=== PATIENT | female | born 1960 | race Caucasian/White ===

== ENCOUNTER → 2018-10-09 13:47 | Outpatient (CLI) | payer OTHER, SELFPAY ==
[2018-09-18 15:31] VITALS: BMI 38.0
== END ==
PROVIDERS: Family Provider Family Medicine; PCP Family Medicine; Visit Provider Family Medicine
DX: R35.0 Frequency of micturition (principal); R82.90 Unspecified abnormal findings in urine
CPT/HCPCS: 87077; 87086; 87088; 87186

== ENCOUNTER → 2019-05-29 16:19 | Outpatient (CLI) | payer OTHER, SELFPAY ==
[2018-09-18 15:31] VITALS: BMI 38.0
[2019-05-29 17:41] LABS: ALB/GLOB Ratio 0.9 RATIO (0.9-2.4); AST(SGOT) 37 U/L (15-37); Alanine Aminotransfer ALT/SGPT 61 U/L (13-56); Albumin, Serum 3.7 g/dL (3.2-5.0); Alkaline Phosphatase 64 U/L (45-117); Anion Gap 10 (5-15); BUN 15 mg/dL (7-18); BUN/Creat Ratio 20.8 RATIO (10-20); Calcium,Total 9.5 mg/dL (8.5-10.1); Chloride 102 mmol/L (98-107); Creatinine, Serum 0.72 mg/dL (0.55-1.02); EST Glomerular Filtration Rate 89 mL/min (>60); Est Glom Filt Rate - Afr Amer 107 mL/min (>60); Globulin 4.3 g/dL (2.2-4.2); Glucose 80 mg/dL (74-106); Potassium 3.2 mmol/L (3.5-5.1); Sodium Level 144 mmol/L (136-145)
== END ==
PROVIDERS: Family Provider Family Medicine; PCP Family Medicine; Visit Provider Family Medicine
DX: Z51.81 Encounter for therapeutic drug level monitoring (principal)
CPT/HCPCS: 36415; 80053

== ENCOUNTER → 2020-06-09 15:20 | Outpatient (CLI) | payer OTHER, SELFPAY ==
[2019-10-06 15:43] VITALS: BMI 38.7
--- NOTE | 2020-06-09 15:23 | BI_ITS ---
MAMMOGRAPHY - BILATERAL SCREENING REASON FOR EXAM: Female, 60 years old. Routine annual screening examination. PERTINENT HISTORY: Aunt with breast cancer. TECHNIQUE: Digital bilateral breast luke (3D mammographic acquisition) in the CC and MLO projections. 2-D mediolateral oblique (MLO) and craniocaudad (CC) views of both breasts were obtained. CAD: Full Field Digital Mammography with Computer Added Detection was performed. COMPARISON: Comparison is made with prior abdomen examination dated 10/23/2016. FINDINGS: Breast Composition: There are scattered areas of fibroglandular density. There are no dominant masses or suspicious calcifications. Stable benign appearing small axillary lymph nodes. No other significant abnormalities are identified. There has been no significant change since the prior study. BI/SCREEN MAMM (CAD) W/LUKE BILAT IMPRESSION: Stable bilateral screening mammogram. Yearly follow-up mammogram recommended. (A) ASSESSMENT CATEGORY: BIRADS Category 2: Benign. A letter regarding these results will be sent to the patient by the facility within 30 days. Approximately 10% of breast cancers are not detected by mammography. A normal mammogram should not delay biopsy of a clinically suspicious abnormality. [id number] Electronically Signed: Lb Castellanos, at 9:09 EDT , Service support ,
== END ==
PROVIDERS: PCP Family Medicine; Referring Provider Family Medicine; Visit Provider Family Medicine
DX: Z12.31 Encounter for screening mammogram for malignant neoplasm of breast (principal); Z80.3 Family history of malignant neoplasm of breast
CPT/HCPCS: 77063; 77067

== ENCOUNTER → 2020-07-15 15:18 | Outpatient (CLI) | payer OTHER, SELFPAY ==
[2019-10-06 15:43] VITALS: BMI 38.7
[2020-07-15 18:52] LABS: AST(SGOT) 79 U/L (15-37); Alanine Aminotransfer ALT/SGPT 127 U/L (13-56); Albumin, Serum 3.8 g/dL (3.2-5.0); Alkaline Phosphatase 64 U/L (45-117); Anion Gap 7 (5-15); BUN 13 mg/dL (7-18); BUN/Creat Ratio 16.1 RATIO (10-20); Calcium,Total 9.1 mg/dL (8.5-10.1); Chloride 101 mmol/L (98-107); Creatinine, Serum 0.81 mg/dL (0.55-1.02); EST Glomerular Filtration Rate 78 mL/min (>60); Est Glom Filt Rate - Afr Amer 94 mL/min (>60); Glucose 79 mg/dL (74-106); Potassium 2.9 mmol/L (3.5-5.1); Protein, Total 7.8 g/dL (6.4-8.2); Sodium Level 140 mmol/L (136-145)
[2020-07-17 05:07] LABS: HEPATITIS B SURFACE AG Negative (Negative); Hepatitis A IgM Antibody Negative (Negative); Hepatitis B Core AB IgM Negative (Negative)
[2020-07-17 08:41] LABS: Hep C Antibodies <0.1 s/co ratio (0.0-0.9)
== END ==
PROVIDERS: PCP Family Medicine; Referring Provider Family Medicine; Visit Provider Family Medicine
DX: R74.8 Abnormal levels of other serum enzymes (principal); R94.5 Abnormal results of liver function studies
CPT/HCPCS: 36415; 80053; 80074

== ENCOUNTER → 2020-07-31 10:26 | Outpatient (CLI) | payer OTHER, SELFPAY ==
[2019-10-06 15:43] VITALS: BMI 38.7
--- NOTE | 2020-07-31 10:35 | US_ITS ---
STUDY: ABDOMINAL ULTRASOUND - RIGHT UPPER QUADRANT REASON FOR VISIT: Female, 60 years old ELEVATED LFTS TECHNIQUE: Ultrasound evaluation of the right upper quadrant was performed with real-time and static feliz-scale imaging. TECHNICAL QUALITY: Limited. Examination limited due to a combination of factors including obesity and bowel gas. COMPARISON: None. FINDINGS: Liver: The liver measures 17 cm. There is increased echogenicity of the liver. The bile ducts are within normal limits. There is hepatic color flow. The direction of portal flow is hepatopetal. There is no demonstrated mass lesion. Gallbladder: The patient is status post cholecystectomy. Common Bile Duct (C.B.D.): The common bile duct measures 6 mm. Pancreas: There is no demonstrated pancreatic mass or cyst. Right Kidney: Normal size of the right kidney. The right kidney measures 12.0 x 5.1 x 3.9 cm. Normal renal cortex. The right cortex measures 1.3 cm. There is no demonstrated renal mass or cyst. There is no right hydronephrosis. US/Abdomen Limited IMPRESSION: Increased echogenicity of the liver is nonspecific but most commonly associated with hepatic steatosis. Cholecystectomy. Electronically Signed: Richy Ayala MD ([facility]) at 15:27 EDT , Service support ,
== END ==
PROVIDERS: PCP Family Medicine; Referring Provider Family Medicine; Visit Provider Family Medicine
DX: R74.8 Abnormal levels of other serum enzymes (principal)
CPT/HCPCS: 76705

== ENCOUNTER → 2020-08-13 09:06 | Outpatient (CLI) | payer OTHER, SELFPAY ==
[2019-10-06 15:43] VITALS: BMI 38.7
[2020-08-13 10:08] LABS: ALB/GLOB Ratio 0.8 RATIO (0.9-2.4); AST(SGOT) 62 U/L (15-37); Alanine Aminotransfer ALT/SGPT 98 U/L (13-56); Albumin, Serum 3.4 g/dL (3.2-5.0); Alkaline Phosphatase 59 U/L (45-117); Anion Gap 3 (5-15); BUN 11 mg/dL (7-18); BUN/Creat Ratio 13.1 RATIO (10-20); Chloride 108 mmol/L (98-107); Creatinine, Serum 0.84 mg/dL (0.55-1.02); EST Glomerular Filtration Rate 74 mL/min (>60); Est Glom Filt Rate - Afr Amer 90 mL/min (>60); Globulin 4.2 g/dL (2.2-4.2); Glucose 87 mg/dL (74-106); Potassium 3.7 mmol/L (3.5-5.1); Protein, Total 7.6 g/dL (6.4-8.2); Sodium Level 142 mmol/L (136-145)
== END ==
PROVIDERS: PCP Family Medicine; Referring Provider Family Medicine; Visit Provider Family Medicine
DX: R74.8 Abnormal levels of other serum enzymes (principal)
CPT/HCPCS: 36415; 80053

== ENCOUNTER → 2020-09-15 15:18 | Outpatient (CLI) | payer OTHER, SELFPAY ==
[2019-10-06 15:43] VITALS: BMI 38.7
[2020-09-15 18:22] LABS: ALB/GLOB Ratio 0.8 RATIO (0.9-2.4); AST(SGOT) 46 U/L (15-37); Alanine Aminotransfer ALT/SGPT 73 U/L (13-56); Albumin, Serum 3.7 g/dL (3.2-5.0); Alkaline Phosphatase 66 U/L (45-117); Anion Gap 8 (5-15); BUN 12 mg/dL (7-18); BUN/Creat Ratio 14.2 RATIO (10-20); Calcium,Total 9.2 mg/dL (8.5-10.1); Chloride 102 mmol/L (98-107); Creatinine, Serum 0.85 mg/dL (0.55-1.02); EST Glomerular Filtration Rate 73 mL/min (>60); Est Glom Filt Rate - Afr Amer 89 mL/min (>60); Globulin 4.4 g/dL (2.2-4.2); Glucose 57 mg/dL (74-106); Potassium 2.8 mmol/L (3.5-5.1); Protein, Total 8.1 g/dL (6.4-8.2); Sodium Level 143 mmol/L (136-145)
[2020-09-16 14:17] LABS: Magnesium 2.3 mg/dL (1.6-2.6)
== END ==
PROVIDERS: PCP Family Medicine; Visit Provider Family Medicine
DX: R74.8 Abnormal levels of other serum enzymes (principal); E87.6 Hypokalemia
CPT/HCPCS: 36415; 80053; 83735

== ENCOUNTER → 2020-10-11 16:29 | Outpatient (CLI) | payer OTHER, SELFPAY ==
[2020-10-11 15:38] VITALS: BMI 39.3
[2020-10-11 17:32] LABS: ALB/GLOB Ratio 0.9 RATIO (0.9-2.4); AST(SGOT) 39 U/L (15-37); Alanine Aminotransfer ALT/SGPT 72 U/L (13-56); Albumin, Serum 3.9 g/dL (3.2-5.0); Alkaline Phosphatase 61 U/L (45-117); Anion Gap 5 (5-15); BUN 16 mg/dL (7-18); BUN/Creat Ratio 18.5 RATIO (10-20); Calcium,Total 9.5 mg/dL (8.5-10.1); Chloride 103 mmol/L (98-107); Creatinine, Serum 0.87 mg/dL (0.55-1.02); EST Glomerular Filtration Rate 71 mL/min (>60); Est Glom Filt Rate - Afr Amer 86 mL/min (>60); Globulin 4.2 g/dL (2.2-4.2); Glucose 74 mg/dL (74-106); Potassium 3.5 mmol/L (3.5-5.1); Protein, Total 8.1 g/dL (6.4-8.2); Sodium Level 141 mmol/L (136-145)
== END ==
LOC: LABSPEC 16:32 → LAB 10-13 06:36
PROVIDERS: PCP Family Medicine; Referring Provider Family Medicine; Visit Provider Family Medicine
DX: E87.6 Hypokalemia (principal); R74.8 Abnormal levels of other serum enzymes
CPT/HCPCS: 36415; 80053

== ENCOUNTER → 2020-10-15 13:36 | Outpatient (CLI) | payer OTHER, SELFPAY ==
[2019-10-06 15:43] VITALS: BMI 38.7
[2020-10-11 15:38] VITALS: BMI 39.3
--- NOTE | 2020-10-15 13:41 | ECHOCS_ITS ---
Reason For Study: MURMUR Procedure This was a 2D Doppler, Color Flow transthoracic echocardiogram. The study was technically difficult. Contrast injection was performed. Exam performed in department. Left Ventricle Normal LV size. Left ventricular systolic function is normal. The estimated ejection fraction is 65 %. No evidence for diastolic dysfunction. No regional wall motion abnormalities noted. Right Ventricle Normal RV size. Normal systolic function. Atria Normal left atrium. Normal right atrium. No doppler evidence for ASD. Mitral Valve There is no mitral annular calcification. Normal mitral valve. Trivial mitral valve insufficiency. Tricuspid Valve Normal tricuspid valve. Mild eccentric tricuspid valve insufficiency. Right ventricular systolic pressure estimated to be 32 mmHg. Aortic Valve Bicuspid aortic valve. Mild diffuse aortic valve thickening. Mild focal aortic valve calcification. Mild aortic stenosis. Trivial aortic valve insufficiency. Pulmonic Valve The pulmonic valve is not well visualized. Great Vessels Mildly dilated aortic root. Pericardium/Pleural No pericardial effusion. Medication 22 gauge I.V. with prn adaptor inserted into right arm. Diluted definity 6ml given slow IV push to enhance endocardial definition. MMode/2D Measurements & Calculations LVIDd: 4.9 cm IVSd: 0.84 cm LVOT diam: 2.0 cm LVIDs: 3.4 cm LVPWd: 0.89 cm RVDd: 3.0 cm FS: 31.2 % LVOT area: 3.1 cm2 Ao root diam: 4.0 cm LAV(MOD-bp): 64.2 ml LVAd ap4: 36.6 cm2 LAV(MOD-bp) Indexed: 31.9 ml/m2 EDV(MOD-sp4): 127.2 ml LAV(MOD-sp2): 61.0 ml EDV(sp4-el): 135.2 ml LAV(MOD-sp4): 60.6 ml LVAs ap4: 20.6 cm2 ESV(MOD-sp4): 51.2 ml ESV(sp4-el): 51.1 ml EF(MOD-sp4): 59.7 % EF(sp4-el): 62.2 % SV(MOD-sp4): 75.9 ml SV(sp4-el): 84.2 ml LA A4 area: 21.0 cm2 LA dimension(2D): 3.8 cm RA A4 area: 14.0 cm2 Time Measurements MV dec time: 0.27 sec Doppler Measurements & Calculations MV E max akhil: 81.6 cm/sec Lat Peak E' Akhil: 10.6 cm/sec Med Peak E' Akhil: 7.6 cm/sec MV A max akhil: 65.4 cm/sec E/E' lat: 7.7 E/E' med: 10.7 MV E/A: 1.2 Ao V2 max: 182.5 cm/sec LV V1 max: 105.0 cm/sec PA V2 max: 85.5 cm/sec Ao max P.3 mmHg LV V1 max P.4 mmHg JOSEPH(V,D): 1.8 cm2 TR max akhil: 269.1 cm/sec TR max P.0 mmHg Interpretation Summary The study was technically difficult. Contrast injection was performed. Left ventricular systolic function is normal. The estimated ejection fraction is 65 %. Trivial mitral valve insufficiency. Mild eccentric tricuspid valve insufficiency. Bicuspid aortic valve. Mild aortic stenosis. Trivial aortic valve insufficiency. Mildly dilated aortic root. Right ventricular systolic pressure estimated to be 32 mmHg. No evidence for diastolic dysfunction. Ordering Physician: Charlie Young Referring Physician: OLIVER KENNEY Performed By: Randee Matthews, RDCS, RVT
== END ==
PROVIDERS: PCP Family Medicine; Visit Provider Internal Medicine Cardiovascular Disease
DX: Q23.1 Congenital insufficiency of aortic valve (principal); R00.1 Bradycardia, unspecified; I10 Essential (primary) hypertension
CPT/HCPCS: 93306; Q9957; A4216; C8929

== ENCOUNTER → 2020-12-04 11:28 | Outpatient (CLI) | payer OTHER, SELFPAY ==
[2020-10-11 15:38] VITALS: BMI 39.3
[2020-12-04 12:33] LABS: ALB/GLOB Ratio 0.8 RATIO (0.9-2.4); AST(SGOT) 23 U/L (15-37); Alanine Aminotransfer ALT/SGPT 39 U/L (13-56); Albumin, Serum 3.4 g/dL (3.2-5.0); Alkaline Phosphatase 58 U/L (45-117); Anion Gap 4 (5-15); BUN 16 mg/dL (7-18); BUN/Creat Ratio 20.8 RATIO (10-20); Chloride 104 mmol/L (98-107); Creatinine, Serum 0.77 mg/dL (0.55-1.02); EST Glomerular Filtration Rate 82 mL/min (>60); Est Glom Filt Rate - Afr Amer 99 mL/min (>60); Globulin 4.2 g/dL (2.2-4.2); Glucose 95 mg/dL (74-106); Potassium 3.5 mmol/L (3.5-5.1); Protein, Total 7.6 g/dL (6.4-8.2); Sodium Level 141 mmol/L (136-145)
== END ==
PROVIDERS: PCP Family Medicine; Visit Provider Family Medicine
DX: E87.6 Hypokalemia (principal); R74.8 Abnormal levels of other serum enzymes
CPT/HCPCS: 36415; 80053

== ENCOUNTER → 2021-02-24 15:40 | Outpatient (CLI) | payer OTHER, SELFPAY ==
[2020-10-11 15:38] VITALS: BMI 39.3
--- NOTE | 2021-02-24 15:41 | CT_ITS ---
STUDY: CT ABDOMEN AND PELVIS WITH CONTRAST REASON FOR EXAM: Female, 60 years old. PELVIC PAIN,ABD PAIN RADIATION DOSAGE (If Supplied By Facility): CTDIvol = ( 18.16 ) mGy, DLP = ( 1168.24 ) mGycm TECHNIQUE: Transaxial images were obtained from the dome of the diaphragm to the symphysis pubis with oral contrast. Oral and amp; IV Gastrografin and amp; 100mL Isovue-300 was administered. Sagittal and coronal images were reconstructed. Individualized dose optimization techniques were used for this CT. COMPARISON: None. FINDINGS: The visualized lung bases are unremarkable. The visualized portions of the heart are within normal limits. There is decreased attenuation of the liver consistent with steatosis. There is an 8.9 mm cyst in the lateral aspect of the right lumbar liver superiorly. There are surgical clips in the gallbladder fossa consistent with a prior cholecystectomy. There is a 7 mm cyst in the superior aspect of the spleen. Normal pancreas. Normal bilateral adrenal glands. Normal right kidney. There is a 2.1 cm cyst in the anterior upper pole of the left kidney. There are 2 small cysts in the mid and inferior pole of the left kidney. There is a small hiatal hernia. Normal small intestine. There are multiple colonic diverticula consistent with diverticulosis. The appendix is visualized and appears normal. Normal abdominal aorta. Normal inferior vena cava. Normal retroperitoneum. Normal urinary bladder. There is a 3.9 cm x 2.4 cm cyst in the right ovary. Normal abdominal wall. There are mild degenerative changes of the visualized lumbar spine. CT/Abdomen/Pelvis WITH Contrast IMPRESSION: Fatty infiltration of the liver. Small hepatic and splenic cysts. Left renal cyst. 3.9 cm x 2.4 cm right ovarian cyst. Electronically Signed: Lb Castellanos MD at 8:26 EDT , Service support ,
== END ==
PROVIDERS: PCP Family Medicine; Referring Provider Family Medicine; Visit Provider Family Medicine
DX: R10.2 Pelvic and perineal pain (principal); R10.31 Right lower quadrant pain
CPT/HCPCS: 74177; Q9967

== ENCOUNTER → 2021-03-11 12:27 | Outpatient (CLI) | payer OTHER, SELFPAY ==
[2020-10-11 15:38] VITALS: BMI 39.3
--- NOTE | 2021-03-11 12:32 | US_ITS ---
STUDY: ULTRASOUND OF THE FEMALE PELVIS - COMPLETE REASON FOR EXAM: Female, 60 years old. Rt -- OVARIAN CYST LMP: The patient is postmenopausal. TECHNIQUE: Transabdominal and Transvaginal TECHNICAL QUALITY: Adequate. COMPARISON: Comparison is made with prior CT scan of the abdomen and pelvis from 02/24/2021. FINDINGS: The uterus is anteverted and is in a midline position. The uterus measures 8.6 cm x 4.5 cm x 3.7 cm. There there are nabothian cysts of the cervix. The endometrium measures 4 mm in thickness, and is hyperechoic. There is no demonstrated endometrial mass. There is a 1 cm x 1 cm x 0.9 cm calcified fibroid in the uterine fundus. I.U.D. - The patient does not have an I.U.D. The right ovary is visualized. The right ovary measures 4.2 cm x 3.4 cm x 3.5 cm. There is a 3.1 cm x 2.5 cm x 2.8 cm right ovarian cyst. There is no visualized right adnexal mass or complex lesion. There is normal arterial and normal venous vascularity. The left ovary is visualized. The left ovary measures 3.1 cm x 2.5 cm x 1.1 cm. There is no left ovarian cyst or ovarian mass. There is no visualized left adnexal mass or complex lesion. There is normal arterial and normal venous vascularity. There is no fluid in the cul-de-sac. The pre void volume of the bladder was 30 ml. Polycystic ovary disease: No. US/Pelvic (Non ) IMPRESSION: 1 cm x 1 cm x 0.9 cm calcified fibroid. 3.1 cm x 2.5 cm x 2.8 cm right ovarian cyst. Electronically Signed: Lb Castellanos MD at 14:47 EDT , Service support ,
--- NOTE | 2021-03-11 12:32 | US_ITS ---
STUDY: ULTRASOUND OF THE FEMALE PELVIS - COMPLETE REASON FOR EXAM: Female, 60 years old. Rt -- OVARIAN CYST LMP: The patient is postmenopausal. TECHNIQUE: Transabdominal and Transvaginal TECHNICAL QUALITY: Adequate. COMPARISON: Comparison is made with prior CT scan of the abdomen and pelvis from 02/24/2021. FINDINGS: The uterus is anteverted and is in a midline position. The uterus measures 8.6 cm x 4.5 cm x 3.7 cm. There there are nabothian cysts of the cervix. The endometrium measures 4 mm in thickness, and is hyperechoic. There is no demonstrated endometrial mass. There is a 1 cm x 1 cm x 0.9 cm calcified fibroid in the uterine fundus. I.U.D. - The patient does not have an I.U.D. The right ovary is visualized. The right ovary measures 4.2 cm x 3.4 cm x 3.5 cm. There is a 3.1 cm x 2.5 cm x 2.8 cm right ovarian cyst. There is no visualized right adnexal mass or complex lesion. There is normal arterial and normal venous vascularity. The left ovary is visualized. The left ovary measures 3.1 cm x 2.5 cm x 1.1 cm. There is no left ovarian cyst or ovarian mass. There is no visualized left adnexal mass or complex lesion. There is normal arterial and normal venous vascularity. There is no fluid in the cul-de-sac. The pre void volume of the bladder was 30 ml. Polycystic ovary disease: No. US/Transvaginal Non- IMPRESSION: 1 cm x 1 cm x 0.9 cm calcified fibroid. 3.1 cm x 2.5 cm x 2.8 cm right ovarian cyst. Electronically Signed: Lb Castellanos MD at 14:47 EDT , Service support ,
== END ==
PROVIDERS: PCP Family Medicine; Referring Provider Family Medicine; Visit Provider Family Medicine
DX: N83.201 Unspecified ovarian cyst, right side (principal)
CPT/HCPCS: 76830; 76856

== ENCOUNTER → 2021-04-25 15:29 | Outpatient (CLI) | payer OTHER, SELFPAY ==
[2021-04-25 14:52] VITALS: BMI 39.3
[2021-04-27 13:27] LABS: Cancer Antigen 125 11.2 U/mL (0.0-38.1); Carcinoembryonic Antigen 1.5 ng/mL (0.0-4.7)
== END ==
PROVIDERS: PCP Family Medicine; Referring Provider Obstetrics & Gynecology; Visit Provider Obstetrics & Gynecology
DX: D25.9 Leiomyoma of uterus, unspecified (principal)
CPT/HCPCS: 36415; 82378; 86304

== ENCOUNTER → 2021-05-06 10:57 | Outpatient (CLI) | payer OTHER, SELFPAY ==
[2021-04-25 14:52] VITALS: BMI 39.3
--- NOTE | 2021-05-06 11:03 | US_ITS ---
STUDY: ULTRASOUND OF THE FEMALE PELVIS - COMPLETE REASON FOR EXAM: Female, 60 years old. Uterine fibroid, right ovarian cyst LMP: The patient is postmenopausal TECHNIQUE: Transabdominal and Transvaginal TECHNICAL QUALITY: Adequate. COMPARISON: Comparison is made with prior examination dated 03/11/2021. FINDINGS: The uterus is anteverted and is tilted to the right side of the pelvis. The uterus measures 8.2 cm x 4.5 cm x 3.5 cm. There is a Nabothian cyst of the cervix. The endometrium measures 3 mm in thickness, and is hyperechoic. There is no demonstrated endometrial mass. 2 small calcified uterine fibroids. The largest is in the posterior fundal portion and measures 1.1 cm x 1 cm x 1 cm. I.U.D. - The patient does not have an I.U.D. The right ovary is visualized. The right ovary measures 3.7 cm x 3 cm x 3.3 cm. There is a 3.2 cm x 2.8cm x 2.7 cm ovarian cyst. There is no visualized right adnexal mass or complex lesion. There is normal arterial and normal venous vascularity. The left ovary is visualized. The left ovary measures 1.9 cm x 2.2 cm by 1.5 cm. Follicles are seen within it. There is no visualized left adnexal mass or complex lesion. There is normal arterial and normal venous vascularity. There is no fluid in the cul-de-sac. The pre void volume of the bladder was 214 ml. US/Pelvic (Non ) IMPRESSION: Stable small calcified fibroid. 3.2 cm x 2.8 cm x 2.7 cm right ovarian cyst. This is essentially unchanged. Electronically Signed: Lb Castellanos MD at 12:41 EDT , Service support ,
--- NOTE | 2021-05-06 11:03 | US_ITS ---
STUDY: ULTRASOUND OF THE FEMALE PELVIS - COMPLETE REASON FOR EXAM: Female, 60 years old. Uterine fibroid, right ovarian cyst LMP: The patient is postmenopausal TECHNIQUE: Transabdominal and Transvaginal TECHNICAL QUALITY: Adequate. COMPARISON: Comparison is made with prior examination dated 03/11/2021. FINDINGS: The uterus is anteverted and is tilted to the right side of the pelvis. The uterus measures 8.2 cm x 4.5 cm x 3.5 cm. There is a Nabothian cyst of the cervix. The endometrium measures 3 mm in thickness, and is hyperechoic. There is no demonstrated endometrial mass. 2 small calcified uterine fibroids. The largest is in the posterior fundal portion and measures 1.1 cm x 1 cm x 1 cm. I.U.D. - The patient does not have an I.U.D. The right ovary is visualized. The right ovary measures 3.7 cm x 3 cm x 3.3 cm. There is a 3.2 cm x 2.8cm x 2.7 cm ovarian cyst. There is no visualized right adnexal mass or complex lesion. There is normal arterial and normal venous vascularity. The left ovary is visualized. The left ovary measures 1.9 cm x 2.2 cm by 1.5 cm. Follicles are seen within it. There is no visualized left adnexal mass or complex lesion. There is normal arterial and normal venous vascularity. There is no fluid in the cul-de-sac. The pre void volume of the bladder was 214 ml. US/Transvaginal Non- IMPRESSION: Stable small calcified fibroid. 3.2 cm x 2.8 cm x 2.7 cm right ovarian cyst. This is essentially unchanged. Electronically Signed: Lb Castellanos MD at 12:41 EDT , Service support ,
== END ==
PROVIDERS: PCP Family Medicine; Referring Provider Obstetrics & Gynecology; Visit Provider Obstetrics & Gynecology
DX: D25.9 Leiomyoma of uterus, unspecified (principal)
CPT/HCPCS: 76830; 76856

== ENCOUNTER → 2021-06-17 11:26 | Outpatient (CLI) | payer OTHER, SELFPAY ==
[2021-04-25 14:52] VITALS: BMI 39.3
--- NOTE | 2021-06-17 11:28 | BI_ITS ---
MAMMOGRAPHY - BILATERAL SCREENING REASON FOR EXAM: Female, 61 years old. Routine annual screening examination. PERTINENT HISTORY: Aunt with breast cancer. TECHNIQUE: Digital bilateral breast luke (3D mammographic acquisition) in the CC and MLO projections. 2-D mediolateral oblique (MLO) and craniocaudad (CC) views of both breasts were obtained. CAD: Full Field Digital Mammography with Computer Added Detection was performed. COMPARISON: Comparison is made with prior examination 06/09/2020. FINDINGS: Breast Composition: There are scattered areas of fibroglandular density. There are no dominant masses or suspicious calcifications. Stable small benign appearing bilateral axillary lymph nodes. No other significant abnormalities are identified. There has been no significant change since the prior study. BI/SCRN MAMM (CAD)W/LUKE BILAT IMPRESSION: Stable bilateral screening mammogram. Yearly follow-up mammogram recommended. (A) ASSESSMENT CATEGORY: BIRADS Category 2: Benign. A letter regarding these results will be sent to the patient by the facility within 30 days. Approximately 10% of breast cancers are not detected by mammography. A normal mammogram should not delay biopsy of a clinically suspicious abnormality. [id number] Electronically Signed: Lb Castellanos MD at 13:29 EDT , Service support ,
== END ==
PROVIDERS: PCP Family Medicine; Referring Provider Family Medicine; Visit Provider Family Medicine
DX: Z12.31 Encounter for screening mammogram for malignant neoplasm of breast (principal); Z80.3 Family history of malignant neoplasm of breast
CPT/HCPCS: 77063; 77067

== ENCOUNTER → 2021-06-24 12:02 | Outpatient (CLI) | payer OTHER, SELFPAY ==
[2021-06-24 12:16] LABS: Absolute Lymphocyte Count 1.78 X10^3/uL (0.83-4.51); Absolute Neutrophil Count 2.6 X10^3/uL (2.0-7.7); Basophil# 0.02 X10^3/uL; Basophil% 0.4 % (0-1); Eosinophil# 0.16 X10^3/uL; Eosinophils% 3.2 % (0-5); Hematocrit 41.7 % (37-47); Hemoglobin 13.1 g/dL (12.0-15.0); Lymphocyte # 1.78 X10^3/ul (0.83-4.51); Lymphocyte % 35.5 % (19-41); Mean Corp Hgb Conc 31.4 g/dL (32-36); Mean Corpuscular Hgb 26.3 pg (27.0-32.0); Mean Corpuscular Volume 83.6 fL (81-99); Mean Platelet Vol. 10.1 fl (6.2-12.0); Monocyte# 0.41 X10^3/uL; Monocyte% 8.2 % (0-10); NRBC Flagged by Analyzer 0 % (0-5); Neutrophil # 2.63 X10^3/uL (2.7-7.7); Neutrophil % 52.5 % (47-70); Platelet Count 253 K/mm3 (150-450); RBC Distribution Width CV 15.8 % (11.6-14.6); RBC Distribution Width SD 48.1 fl (35.1-43.9); Red Blood Count 4.99 M/mm3 (4.2-5.4)
[2021-06-24 12:43] LABS: ALB/GLOB Ratio 0.9 RATIO (0.9-2.4); AST(SGOT) 25 U/L (15-37); Alanine Aminotransfer ALT/SGPT 43 U/L (13-56); Albumin, Serum 3.5 g/dL (3.2-5.0); Alkaline Phosphatase 58 U/L (45-117); Anion Gap 4 (5-15); BUN 13 mg/dL (7-18); BUN/Creat Ratio 18.7 RATIO (10-20); Calcium,Total 8.6 mg/dL (8.5-10.1); Chloride 107 mmol/L (98-107); Cholesterol 198 mg/dL (200); Creatinine, Serum 0.69 mg/dL (0.55-1.02); EST Glomerular Filtration Rate 92 mL/min (>60); Est Glom Filt Rate - Afr Amer 111 mL/min (>60); Glucose 78 mg/dL (74-106); High Density Lipoprotein 48 mg/dL; Potassium 3.7 mmol/L (3.5-5.1); Protein, Total 7.5 g/dL (6.4-8.2); Sodium Level 141 mmol/L (136-145); Triglycerides 86 mg/dL; Very Low Density Lipoprotein 17 mg/dL (5-40)
== END ==
PROVIDERS: PCP Family Medicine; Referring Provider Family Medicine; Visit Provider Family Medicine
DX: Z00.00 Encounter for general adult medical examination without abnormal findings (principal); E78.5 Hyperlipidemia, unspecified; Z51.81 Encounter for therapeutic drug level monitoring; R74.8 Abnormal levels of other serum enzymes
CPT/HCPCS: 36415; 80053; 80061; 85025

== ENCOUNTER → 2021-10-17 14:35 | Outpatient (CLI) | payer OTHER, SELFPAY ==
--- NOTE | 2021-10-17 14:39 | ECHOD_ITS ---
Reason For Study: Bicuspid AV Procedure This was a 2D Doppler, Color Flow transthoracic echocardiogram. The study was technically difficult. Exam performed in department. Left Ventricle Normal LV size. Left ventricular systolic function is normal. The estimated ejection fraction is 60 %. No evidence for diastolic dysfunction. No regional wall motion abnormalities noted. Right Ventricle Normal RV size. Normal systolic function. Atria Normal left atrium. Normal right atrium. No doppler evidence for ASD. Mitral Valve There is no mitral annular calcification. Normal mitral valve. Trivial mitral valve insufficiency. Tricuspid Valve Normal tricuspid valve. Trivial tricuspid valve insufficiency. Right ventricular systolic pressure estimated to be 22 mmHg. Aortic Valve Bicuspid aortic valve. Mild aortic stenosis. Trivial aortic valve insufficiency. Pulmonic Valve The pulmonic valve is not well visualized. Great Vessels Borderline enlarged aortic root. Pericardium/Pleural No pericardial effusion. MMode/2D Measurements & Calculations LVIDd: 4.8 cm IVSd: 1.0 cm LVOT diam: 2.1 cm LVIDs: 2.5 cm LVPWd: 0.95 cm LVOT area: 3.5 cm2 RVDd: 3.0 cm FS: 47.1 % Ao root diam: 3.7 cm LAV(MOD-bp): 39.4 ml LVAd ap4: 28.9 cm2 LAV(MOD-bp) Indexed: 19.6 ml/m2 LVLd ap4: 7.4 cm LAV(MOD-sp2): 40.9 ml EDV(MOD-sp4): 91.1 ml LAV(MOD-sp4): 36.5 ml EDV(sp4-el): 95.0 ml LVAs ap4: 16.4 cm2 LVLs ap4: 6.5 cm ESV(MOD-sp4): 35.0 ml ESV(sp4-el): 35.2 ml EF(MOD-sp4): 61.6 % EF(sp4-el): 62.9 % LVAd ap2: 27.2 cm2 SV(MOD-sp4): 56.1 ml SV(MOD-sp2): 54.6 ml LVLd ap2: 7.4 cm EDV(MOD-sp2): 85.1 ml EDV(sp2-el): 84.7 ml LVAs ap2: 15.0 cm2 LVLs ap2: 6.2 cm ESV(MOD-sp2): 30.5 ml ESV(sp2-el): 30.9 ml EF(MOD-sp2): 64.2 % SV(sp4-el): 59.8 ml LA dimension(2D): 3.4 cm LA A4 area: 14.5 cm2 RA A4 area: 11.9 cm2 Doppler Measurements & Calculations MV E max akhil: 61.8 cm/sec Lat Peak E' Akhil: 8.0 cm/sec Med Peak E' Akhil: 5.8 cm/sec MV A max akhil: 76.0 cm/sec E/E' lat: 7.8 E/E' med: 10.6 MV E/A: 0.81 Ao V2 max: 204.6 cm/sec AI max akhil: 364.9 cm/sec LV V1 max: 100.9 cm/sec Ao max P.7 mmHg AI max P.3 mmHg LV V1 max P.1 mmHg Ao V2 mean: 144.3 cm/sec AI dec slope: 120.1 cm/sec2 LV V1 mean P.5 mmHg Ao mean P.1 mmHg AI P1/2t: 890.2 msec LV V1 mean: 75.9 cm/sec Ao V2 VTI: 42.5 cm LV V1 VTI: 22.6 cm JOSEPH(I,D): 1.9 cm2 JOSEPH(V,D): 1.7 cm2 SV(LVOT): 79.4 ml TR max akhil: 218.4 cm/sec TR max P.1 mmHg ECHO/Echo Complete Interpretation Summary The study was technically difficult. Left ventricular systolic function is normal. The estimated ejection fraction is 60 %. Trivial mitral valve insufficiency. Trivial tricuspid valve insufficiency. Bicuspid aortic valve. Mild aortic stenosis. Trivial aortic valve insufficiency. Borderline enlarged aortic root. Right ventricular systolic pressure estimated to be 22 mmHg. No evidence for diastolic dysfunction. Ordering Physician: Charlie Young Referring Physician: Priti Mcmahan Performed By: Yumiko Sher RDCS
== END ==
PROVIDERS: PCP Family Medicine; Referring Provider Internal Medicine Cardiovascular Disease; Visit Provider Internal Medicine Cardiovascular Disease
DX: I35.2 Nonrheumatic aortic (valve) stenosis with insufficiency (principal); I10 Essential (primary) hypertension
CPT/HCPCS: 93306

== ENCOUNTER → 2022-06-12 | Outpatient (CLI) | payer OTHER, SELFPAY ==
[2022-06-16 00:06] LABS: Age Gdln ACOG Testing 30-65 (.)
[2022-06-16 10:55] LABS: HPV APTIMA, High Risk Negative (Negative)
[2022-06-16 17:30] LABS: HPV Reflexed? YES, CHARGE PATIENT
== END | disposition home or self-care (01) ==
PROVIDERS: PCP Family Medicine; Visit Provider Family Medicine
DX: Z12.4 Encounter for screening for malignant neoplasm of cervix (principal)
CPT/HCPCS: 87624; 88175; G0145

== ENCOUNTER → 2022-06-23 | Outpatient (CLI) | payer OTHER, SELFPAY ==
--- NOTE | 2022-06-23 13:06 | US_ITS ---
STUDY: ULTRASOUND OF THE FEMALE PELVIS - COMPLETE REASON FOR EXAM: Female, 62 years old. Postmenopausal. Ovarian cyst. LMP: Patient is postmenopausal. TECHNIQUE: Transabdominal TECHNICAL QUALITY: Adequate. COMPARISON: Comparison is made with prior study dated 05/06/2021. FINDINGS: The uterus is anteverted and is in a midline position. The uterus measures 8 cm x 5.8 cm x 3.5 cm. Normal uterine cervix. The endometrium measures 3 mm in thickness, and is hyperechoic. There is no demonstrated endometrial mass. There is a 1 cm x 1 cm x 0.7 cm partially calcified uterine fibroid. I.U.D. - The patient does not have an I.U.D. The right ovary is visualized. The right ovary measures 4.3 cm x 3.9 cm x 4.1 cm. There is a 3.2 cm x 2.8 cm x 3 cm benign right ovarian cyst. There is no visualized right adnexal mass or complex lesion. There is normal arterial and normal venous vascularity. The left ovary is visualized. The left ovary measures 2 cm x 2.4 cm x 1.1 cm. There is no left ovarian cyst or ovarian mass. There is no visualized left adnexal mass or complex lesion. There is normal arterial and normal venous vascularity. There is no fluid in the cul-de-sac. The pre void volume of the bladder was 93 ml. US/Pelvic (Non ) IMPRESSION: 3.2 cm x 2.8 cm x 3 cm right ovarian cyst. Small uterine fibroid. Electronically Signed: Lb Castellanos MD at 14:18 EDT ,
[2022-06-23 14:32] LABS: Absolute Lymphocyte Count 1.48 X10^3/uL (0.83-4.51); Absolute Neutrophil Count 3.2 X10^3/uL (2.0-7.7); Basophil# 0.03 X10^3/uL; Basophil% 0.6 % (0-1); Eosinophil# 0.14 X10^3/uL; Eosinophils% 2.6 % (0-5); Hematocrit 42.4 % (37-47); Hemoglobin 13.5 g/dL (12.0-15.0); Lymphocyte # 1.48 X10^3/ul (0.83-4.51); Lymphocyte % 27.2 % (19-41); Mean Corp Hgb Conc 31.8 g/dL (32-36); Mean Corpuscular Hgb 26.8 pg (27.0-32.0); Mean Corpuscular Volume 84.1 fL (81-99); Mean Platelet Vol. 10.3 fl (6.2-12.0); Monocyte# 0.59 X10^3/uL; Monocyte% 10.8 % (0-10); NRBC Flagged by Analyzer 0 % (0-5); Neutrophil % 58.6 % (47-70); Platelet Count 279 K/mm3 (150-450); RBC Distribution Width CV 15.3 % (11.6-14.6); RBC Distribution Width SD 47.2 fl (35.1-43.9); Red Blood Count 5.04 M/mm3 (4.2-5.4); White Blood Count 5.5 K/mm3 (4.4-11.0)
[2022-06-23 15:06] LABS: ALB/GLOB Ratio 0.8 RATIO (0.9-2.4); AST(SGOT) 26 U/L (15-37); Alanine Aminotransfer ALT/SGPT 40 U/L (13-56); Albumin, Serum 3.5 g/dL (3.2-5.0); Alkaline Phosphatase 59 U/L (45-117); Anion Gap 4 (5-15); BUN 13 mg/dL (7-18); BUN/Creat Ratio 17.1 RATIO (10-20); Calcium,Total 8.9 mg/dL (8.5-10.1); Chloride 102 mmol/L (98-107); Cholesterol 217 mg/dL (200); Creatinine, Serum 0.76 mg/dL (0.55-1.02); EST Glomerular Filtration Rate 83 mL/min (>60); Est Glom Filt Rate - Afr Amer 100 mL/min (>60); Globulin 4.3 g/dL (2.2-4.2); Glucose 100 mg/dL (74-106); High Density Lipoprotein 50 mg/dL; Potassium 3.3 mmol/L (3.5-5.1); Protein, Total 7.8 g/dL (6.4-8.2); Sodium Level 140 mmol/L (136-145); Triglycerides 141 mg/dL; Very Low Density Lipoprotein 28 mg/dL (5-40)
== END | disposition home or self-care (01) ==
PROVIDERS: PCP Family Medicine; Visit Provider Family Medicine
DX: Z00.00 Encounter for general adult medical examination without abnormal findings (principal); N83.291 Other ovarian cyst, right side; R10.11 Right upper quadrant pain; N83.201 Unspecified ovarian cyst, right side; D25.9 Leiomyoma of uterus, unspecified; Z78.0 Asymptomatic menopausal state
CPT/HCPCS: 36415; 76856; 80053; 80061; 85025; 86304

== ENCOUNTER → 2022-06-30 | Outpatient (CLI) | payer OTHER, SELFPAY ==
--- NOTE | 2022-06-30 09:40 | US_ITS ---
STUDY: ABDOMINAL ULTRASOUND REASON FOR EXAM: Female, 62 years old. Right upper quadrant pain. TECHNIQUE: Transabdominal ultrasound was performed with real-time and static feliz scale imaging. TECHNICAL QUALITY: Adequate. COMPARISON: Comparison is made with prior study dated 07/31/2020. FINDINGS: Liver: The liver is enlarged and measures 18.5 cm. There is increased echogenicity consistent with fatty infiltration. The bile ducts are within normal limits. There is hepatic color flow. The direction of portal flow is hepatopetal. There is no demonstrated mass lesion. Gallbladder: The patient is status post cholecystectomy. Common Bile Duct (C.B.D.): The common bile duct measures 7 mm. Pancreas: Normal size of the head, body and tail of the pancreas. There is normal echogenicity of the pancreas. There is no demonstrated pancreatic mass or cyst. Spleen: Normal size of the spleen. The spleen measures 9.8 cm x 4.97 x 4.6 cm. Right Kidney: Normal size of the right kidney. The right kidney measures 11.6 cm x 5.4 cm x 4.6 cm. Normal renal cortex. The right cortex measures 2.0 cm. There is no demonstrated renal mass or cyst. There is no right hydronephrosis. Left Kidney: Normal size of the left kidney. The left kidney measures 12.1 cm x 5.2 cm x 6.5 cm. Normal renal cortex. The left cortex measures 2.0 cm. There is no demonstrated renal mass or cyst. There is no left hydronephrosis. Aorta: Unremarkable I.V.C.: The IVC is patent. There is no ascites. US/Abdomen Complete IMPRESSION: Mild hepatomegaly and fatty infiltration of the liver. The patient is status post cholecystectomy. Electronically Signed: Lb Castellanos MD at 15:19 EDT ,
--- NOTE | 2022-06-30 10:27 | BI_ITS ---
MAMMOGRAPHY - BILATERAL SCREENING REASON FOR EXAM: Female, 62 years old. Routine annual screening examination. PERTINENT HISTORY: Aunt with breast cancer. TECHNIQUE: Digital bilateral breast luke (3D mammographic acquisition) in the CC and MLO projections. 2-D mediolateral oblique (MLO) and craniocaudad (CC) views of both breasts were obtained. CAD: Full Field Digital Mammography with Computer Added Detection was performed. COMPARISON: Comparison is made with prior study 06/17/2021 and 06/09/2020. FINDINGS: Breast Composition: There are scattered areas of fibroglandular density. There are no dominant masses or suspicious calcifications. Stable small benign-appearing bilateral axillary nodes. No other significant abnormalities are identified. There has been no significant change since the prior study. BI/SCRN MAMM (CAD)W/LUKE BILAT IMPRESSION: Stable bilateral screening mammogram. Yearly follow-up mammogram recommended. (A) ASSESSMENT CATEGORY: BIRADS Category 2: Benign. A letter regarding these results will be sent to the patient by the facility within 30 days. Approximately 10% of breast cancers are not detected by mammography. A normal mammogram should not delay biopsy of a clinically suspicious abnormality. [id number] Electronically Signed: Lb Castellanos MD at 12:52 EDT ,
== END | disposition home or self-care (01) ==
PROVIDERS: PCP Family Medicine; Referring Provider Family Medicine; Visit Provider Family Medicine
DX: Z12.31 Encounter for screening mammogram for malignant neoplasm of breast (principal); Z80.3 Family history of malignant neoplasm of breast; N83.201 Unspecified ovarian cyst, right side; R10.11 Right upper quadrant pain
CPT/HCPCS: 76700; 77063; 77067

== ENCOUNTER → 2022-10-10 | Outpatient (CLI) | payer OTHER, SELFPAY ==
[2022-10-10 17:43] LABS: Absolute Lymphocyte Count 2.01 X10^3/uL (0.83-4.51); Absolute Neutrophil Count 2.7 X10^3/uL (2.0-7.7); Basophil# 0.02 X10^3/uL; Basophil% 0.4 % (0-1); Eosinophil# 0.11 X10^3/uL; Eosinophils% 2.1 % (0-5); Hematocrit 39.8 % (37-47); Hemoglobin 12.5 g/dL (12.0-15.0); Lymphocyte # 2.01 X10^3/ul (0.83-4.51); Lymphocyte % 37.8 % (19-41); Mean Corp Hgb Conc 31.4 g/dL (32-36); Mean Corpuscular Hgb 26.5 pg (27.0-32.0); Mean Corpuscular Volume 84.3 fL (81-99); Mean Platelet Vol. 10.7 fl (6.2-12.0); Monocyte# 0.49 X10^3/uL; Monocyte% 9.2 % (0-10); NRBC Flagged by Analyzer 0 % (0-5); Neutrophil # 2.67 X10^3/uL (2.7-7.7); Neutrophil % 50.1 % (47-70); Platelet Count 303 K/mm3 (150-450); RBC Distribution Width CV 14.2 % (11.6-14.6); RBC Distribution Width SD 43.8 fl (35.1-43.9); Red Blood Count 4.72 M/mm3 (4.2-5.4); White Blood Count 5.3 K/mm3 (4.4-11.0)
[2022-10-10 18:10] LABS: ALB/GLOB Ratio 0.9 RATIO (0.9-2.4); AST(SGOT) 31 U/L (15-37); Alanine Aminotransfer ALT/SGPT 56 U/L (13-56); Albumin, Serum 3.6 g/dL (3.2-5.0); Alkaline Phosphatase 50 U/L (45-117); Anion Gap 5 (5-15); BUN 17 mg/dL (7-18); BUN/Creat Ratio 17.3 RATIO (10-20); Calcium,Total 9.5 mg/dL (8.5-10.1); Chloride 103 mmol/L (98-107); Cholesterol 162 mg/dL (200); Creatinine, Serum 0.98 mg/dL (0.55-1.02); EST Glomerular Filtration Rate 61 mL/min (>60); Est Glom Filt Rate - Afr Amer 74 mL/min (>60); Glucose 74 mg/dL (74-106); High Density Lipoprotein 50 mg/dL; Potassium 3.7 mmol/L (3.5-5.1); Protein, Total 7.6 g/dL (6.4-8.2); Sodium Level 141 mmol/L (136-145); Triglycerides 87 mg/dL; Very Low Density Lipoprotein 17 mg/dL (5-40)
== END | disposition home or self-care (01) ==
LOC: BFHLAB 16:06
PROVIDERS: PCP Family Medicine; Visit Provider Family Medicine
DX: E78.5 Hyperlipidemia, unspecified (principal); Z51.81 Encounter for therapeutic drug level monitoring
CPT/HCPCS: 36415; 80053; 80061; 85025

== ENCOUNTER → 2022-10-23 | Outpatient (CLI) | payer OTHER, SELFPAY ==
--- NOTE | 2022-10-23 14:52 | ECHOD_ITS ---
Reason For Study: MURMUR Procedure This was a 2D Doppler, Color Flow transthoracic echocardiogram. The exam was of adequate technical quality. Exam performed in department. Left Ventricle Normal LV size. Left ventricular systolic function is normal. The estimated ejection fraction is 65 %. No evidence for diastolic dysfunction. No regional wall motion abnormalities noted. Right Ventricle Normal RV size. Normal systolic function. Atria Normal left atrium. Normal right atrium. No doppler evidence for ASD. Mitral Valve There is no mitral annular calcification. Normal mitral valve. Trivial mitral valve insufficiency. Tricuspid Valve Normal tricuspid valve. Trivial tricuspid valve insufficiency. Right ventricular systolic pressure estimated to be 20 mmHg. Aortic Valve Bicuspid aortic valve. Mild focal aortic valve thickening. Mild aortic stenosis. Mild (1+) eccentric aortic valve insufficiency. Pulmonic Valve The pulmonic valve is not well visualized. Trivial pulmonic valve insufficiency. Great Vessels Borderline enlarged aortic root. Pericardium/Pleural No pericardial effusion. MMode/2D Measurements & Calculations LVIDd: 5.1 cm IVSd: 0.70 cm Ao root diam: 3.8 cm LVIDs: 3.4 cm LVPWd: 0.83 cm RVDd: 2.4 cm FS: 33.9 % LAV(MOD-bp): 51.9 ml LVAd ap4: 29.7 cm2 SV(MOD-sp4): 63.1 ml LAV(MOD-bp) Indexed: 26.3 ml/m2 LVLd ap4: 8.0 cm LAV(MOD-sp2): 74.2 ml EDV(MOD-sp4): 92.8 ml LAV(MOD-sp4): 31.8 ml EDV(sp4-el): 93.5 ml LVAs ap4: 14.6 cm2 LVLs ap4: 6.1 cm ESV(MOD-sp4): 29.7 ml ESV(sp4-el): 29.5 ml EF(MOD-sp4): 68.0 % EF(sp4-el): 68.5 % SV(sp4-el): 64.1 ml LA A4 area: 13.8 cm2 LA dimension(2D): 3.5 cm RA A4 area: 10.8 cm2 Time Measurements MV dec time: 0.21 sec Doppler Measurements & Calculations MV E max akhil: 80.5 cm/sec Lat Peak E' Akhil: 11.6 cm/sec Med Peak E' Akhil: 8.4 cm/sec MV A max akhil: 85.1 cm/sec E/E' lat: 6.9 E/E' med: 9.6 MV E/A: 0.95 MV V2 max: 86.6 cm/sec Ao V2 max: 205.8 cm/sec MV max P.0 mmHg MV dec slope: 380.0 cm/sec2 Ao max P.9 mmHg MV V2 mean: 58.8 cm/sec Ao V2 mean: 146.0 cm/sec MV mean P.5 mmHg Ao mean P.7 mmHg MV V2 VTI: 41.2 cm Ao V2 VTI: 50.0 cm AV (velocity ratio): 0.54 LV V1 max: 104.6 cm/sec PA V2 max: 69.1 cm/sec TR max akhil: 203.8 cm/sec LV V1 max P.4 mmHg PA V2 mean: 50.6 cm/sec TR max P.6 mmHg LV V1 mean P.8 mmHg LV V1 mean: 78.9 cm/sec LV V1 VTI: 26.8 cm ECHO/Echo Complete Interpretation Summary Left ventricular systolic function is normal. The estimated ejection fraction is 65 %. Trivial mitral valve insufficiency. Trivial tricuspid valve insufficiency. Bicuspid aortic valve. Mild aortic stenosis. Mild (1+) eccentric aortic valve insufficiency. Trivial pulmonic valve insufficiency. Borderline enlarged aortic root. Right ventricular systolic pressure estimated to be 20 mmHg. No evidence for diastolic dysfunction. Ordering Physician: Charlie Young Referring Physician: Charlie Young Performed By: Jocelyn Dsouza RCS
== END | disposition home or self-care (01) ==
LOC: CVS 14:51
PROVIDERS: PCP Family Medicine; Referring Provider Internal Medicine Cardiovascular Disease; Visit Provider Internal Medicine Cardiovascular Disease
DX: I35.2 Nonrheumatic aortic (valve) stenosis with insufficiency (principal)
CPT/HCPCS: 93306

== ENCOUNTER → 2023-06-18 | Outpatient (CLI) | payer OTHER, SELFPAY ==
[2023-06-18 16:04] LABS: Absolute Neutrophil Count 3.3 X10^3/uL (2.0-7.7); Basophil# 0.02 X10^3/uL; Basophil% 0.4 % (0-1); Eosinophils% 1.9 % (0-5); Hemoglobin 12.6 g/dL (12.0-15.0); Lymphocyte % 27.9 % (19-41); Mean Corp Hgb Conc 31.5 g/dL (32-36); Mean Corpuscular Hgb 26.6 pg (27.0-32.0); Mean Corpuscular Volume 84.4 fL (81-99); Mean Platelet Vol. 10.2 fl (6.2-12.0); Monocyte# 0.44 X10^3/uL; Monocyte% 8.2 % (0-10); NRBC Flagged by Analyzer 0 % (0-5); Neutrophil # 3.31 X10^3/uL (2.7-7.7); Neutrophil % 61.4 % (47-70); Platelet Count 255 K/mm3 (150-450); RBC Distribution Width CV 15.5 % (11.6-14.6); RBC Distribution Width SD 47.4 fl (35.1-43.9); Red Blood Count 4.74 M/mm3 (4.2-5.4); White Blood Count 5.4 K/mm3 (4.4-11.0)
[2023-06-18 16:35] LABS: AST(SGOT) 27 U/L (15-37); Alanine Aminotransfer ALT/SGPT 37 U/L (13-56); Albumin, Serum 3.8 g/dL (3.2-5.0); Alkaline Phosphatase 59 U/L (45-117); Anion Gap 5 (5-15); BUN 14 mg/dL (7-18); BUN/Creat Ratio 16.2 RATIO (10-20); Calcium,Total 9.4 mg/dL (8.5-10.1); Chloride 105 mmol/L (98-107); Cholesterol 177 mg/dL (200); Creatinine, Serum 0.86 mg/dL (0.55-1.02); EST Glomerular Filtration Rate 71 mL/min (>60); Est Glom Filt Rate - Afr Amer 86 mL/min (>60); Glucose 78 mg/dL (74-106); High Density Lipoprotein 56 mg/dL; Potassium 3.4 mmol/L (3.5-5.1); Protein, Total 7.8 g/dL (6.4-8.2); Sodium Level 141 mmol/L (136-145); Triglycerides 58 mg/dL; Very Low Density Lipoprotein 12 mg/dL (5-40)
== END | disposition home or self-care (01) ==
LOC: LAB 15:47
PROVIDERS: PCP Family Medicine; Referring Provider Family Medicine; Visit Provider Family Medicine
DX: E78.5 Hyperlipidemia, unspecified (principal); Z51.81 Encounter for therapeutic drug level monitoring
CPT/HCPCS: 36415; 80053; 80061; 85025

== ENCOUNTER → 2023-07-06 | Outpatient (CLI) | payer OTHER, SELFPAY ==
--- NOTE | 2023-07-06 14:51 | BI_ITS ---
MAMMOGRAPHY - BILATERAL SCREENING REASON FOR EXAM: Female, 63 years old. Routine annual screening examination. PERTINENT HISTORY: Non-contributory. TECHNIQUE: Digital bilateral breast luke (3D mammographic acquisition) in the CC and MLO projections. 2-D mediolateral oblique (MLO) and craniocaudad (CC) views of both breasts were obtained. CAD: Full Field Digital Mammography with Computer Added Detection was performed. COMPARISON: Comparison is made with prior study June 30, 2022 and June 17, 2021. FINDINGS: Breast Composition: There are scattered areas of fibroglandular density. There are no dominant masses or suspicious calcifications. Stable small benign-appearing bilateral axillary lymph nodes. No other significant abnormalities are identified. There has been no significant change since the prior study. BI/SCRN MAMM (CAD)W/LUKE BILAT IMPRESSION: Stable bilateral screening mammogram. Yearly follow-up mammogram recommended. (A) ASSESSMENT CATEGORY: BIRADS Category 2: Benign. A letter regarding these results will be sent to the patient by the facility within 30 days. Approximately 10% of breast cancers are not detected by mammography. A normal mammogram should not delay biopsy of a clinically suspicious abnormality. [id number] Electronically Signed: Lb Castellanos MD at 9:01 EDT ,
== END | disposition home or self-care (01) ==
LOC: OPBI 14:48
PROVIDERS: PCP Family Medicine; Referring Provider Family Medicine; Visit Provider Family Medicine
DX: Z12.31 Encounter for screening mammogram for malignant neoplasm of breast (principal)
CPT/HCPCS: 77063; 77067

== ENCOUNTER 2023-09-03 08:38 | Day surgery (SDC) | payer OTHER, SELFPAY ==
[2023-09-03] VITALS (7 sets, daily range): BP systolic 100–124; BP diastolic 61–74; PULSE 49–59; RESP 16; TEMP 36.9–37.1; O2SAT 92–98; BMI 37.8
--- NOTE | 2023-09-03 09:04 | PCM.HP.BLA ---
History and Physical Date of Admission: 09/03/23 Date of Service: 08/20/23 MR#: [id number] Acct: [id number] Name: LEENA KENNEDY Rep #: [id number] : 1960 Provider: Dr. Luisa Birmingham MD Age/Sex: 63/F Location: [facility] Status: Signed Intake Vital Signs 04/24/2315:27 08/20/2314:35 Height 5 ft 3 in 5 ft 3 in Weight: 217 lb BMI 38.4 BP 122/78 H Blood Pressure Location Rt brachial Position Sitting Respiration 17 Pulse 64 Pulse Source Monitor Temp 96.7 F L Temp Source Temporal Pulse Oximetry (%) 96 Oxygen Delivery Method room air Intake Visit Reasons: POSITIVE COLOGUARD Chief Complaint: positive cologuard Is patient in pain?: No Allergies aspirin [ASA] Adverse Reaction (Verified 08/20/23 14:36) Upset Stomach Medications paroxetine HCl 30 mg tablet 30 mg PO DAILY 08/13/17 [History Confirmed 08/20/23] valsartan 320 mg-hydrochlorothiazide 25 mg tablet 1 ea PO DAILY 08/13/17 [History Confirmed 08/20/23] cholecalciferol (vitamin D3) 125 mcg (5,000 unit) tablet 5,000 unit PO DAILY 09/18/18 [History Confirmed 08/20/23] multivitamin 1 tab PO DAILY 09/18/18 [History Confirmed 08/20/23] vitamin E 200 unit capsule 200 unit PO DAILY 04/25/21 [History Confirmed 08/20/23] amoxicillin 500 mg tablet 2,000 mg (4 x 500 mg) PO .COMPLEX #4 tabs 01/11/23 [Rx Confirmed 08/20/23] potassium chloride 10 mEq tablet,extended release 20 meq PO BID 04/24/23 [History Confirmed 08/20/23] simvastatin 5 mg tablet ea PO 04/24/23 [History Confirmed 08/20/23] turmeric root extract 500 mg tablet 500 mg PO DAILY 04/24/23 [History Confirmed 08/20/23] [facility] Medical History (Updated 08/20/23 @ 14:35 by Vaishali Rivera) Bicuspid aortic valve Essential hypertension Nonrheumatic aortic (valve) stenosis with insufficiency Sinus bradycardia Surgical History History of cholecystectomy History of tubal ligation Family History Father CVA (cerebral vascular accident) HypertensionMother Hypertension DiabetesBrother Hypertension DiabetesSister Diabetes Hypertension Social History Smoking Status: Never smoker alcohol intake: never caffeine: Yes what type of physical activity do you participate in: walking seatbelt use: always do you feel safe at home: Yes 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 Patient last colonoscopy was greater than 40 years ago negative per patient she states she was in her 40s and was done at [place]. Patient states she has bowel movements daily denies any blood. Patient does have family history in her maternal grandmother who is 52 when she and was diagnosed prior with colon cancer. Patient's mom of a stroke at age 71 patient unsure if she has had colonoscopies or not. Patient states she would occasionally get some right upper quadrant back pain is worse in July however does seem to have improved and only happens occasionally worse with movement or laying on that side at bedtime but will resolve if she is laying on her back. Patient states she normally eats about 7 PM and normally goes to bed about 930 or so. Otherwise patient denies any abdominal pain after eating. ROS General General: Yes fatigue; No weight change, appetite, colon cancer, breast cancer or weakness HEENT HEENT: No difficulty swallowing, eye injury, eye surgery, swollen glands or hoarseness Endo Endocrine: No thyroid disease, diabetes mellitus, thyroid cancer, Hair loss, heat intolerance or cold intolerance Skin Skin: No rash or changing moles Musc Musculoskeletal: No back problems, arthritis, rheumatoid arthritis, gout or joint pain Cardio Cardiovascular: Yes high blood pressure; No murmur, pacemaker, heart disease, atrial fibrillation, heart attack, heart stent, palpitations, shortness of breat with exertion or chest pain Psych Psychiatric: Yes anxiety; No depression or hearing voices Resp Respiratory: No shortness of breath, No sleep apnea, No cough, No COPD, No asthma, No emphysema and No wheezing Gastro Gastrointestinal: No abdominal pain, No nausea or vomiting, No diarrhea, Yes constipation, No blood in stool, No acid reflux, No hemorrhoids, No ulcers, No gallbladder problem and No black,tarry stools Jose Hematologic: No blood thinners, No blood disorders, No bleeding, No anemia and No blood clots Neuro Neurologic: No system reviewed and no additional complaints, except as documented, No as per HPI, No abnormal gait, No abnormal hearing, No abnormal movements, No abnormal speech, No behavioral changes, No burning sensations, No confusion, No convulsions, No disequilibrium, No dizziness, No localized weakness, No frequent falls, No headache(s), No lack of coordination, No loss of vision, No memory loss, No numbness, No other visual disturbances, No radicular pain, No restless legs, No sensory deficit, No syncope, No tingling, No tremor(s), No weakness and No other Exam Const General: cooperative, healthy appearing, comfortable and no acute distress HENMT Head: normocephalic and atraumatic Neck Neck: supple Resp Effort & Inspection: normal respiratory effort Cardio Rate: regular rate GI Inspection: non-distended Palpation: soft and nontender Skin General: no rashes or lesions noted Neuro General: CN's II-XI intact bilaterally Extrem General: normal to inspection Psych Mental Status: mental status grossly normal Attitude: cooperative Assessment and Plan Assessment and Plan (1) Positive colorectal cancer screening using Cologuard test: Status: Acute Orders: Orders Colonoscopy 09/03/23 Plan I have discussed the above with the patient. I have offered the patient colonoscopy for evaluation. I have explained the risks/benefits of the procedure and described the procedure. I have discussed the risks with the patient, including but not limited to: infection, bleeding, perforation of the GI tract requiring emergency surgery, inability to complete the procedure, injury to any internal organs, complications of anesthesia, etc. - the patient understands and agrees to proceed. I have answered all the patient's questions to the patient's satisfaction and the patient has no further questions. The patient has been given instructions for the colon cleansing preparation. MiraLAX Dulcolax prep, 1 day of clears Luisa Birmingham M.D. Pager: [phone] [facility] [address] [place] [address], [facility], [address] [place] [address] Office: [phone] Coding Level of Care Code Off vis,new,level 3 Diagnoses Positive colorectal cancer screening using Cologuard test R19.5 08/21/23 1358 <Electronically signed by Luisa Birmingham MD> Date Luisa Birmingham MD
[2023-09-03] MEDS: Lactated Ringers 1,000 ML 15 ML IV (09:18)
--- NOTE | 2023-09-03 09:45 | COLBX_PTH ---
PATIENT: LEENA KENNEDY LOC: EN U#:[id number] AGE/SX: 63/F ROOM: RE09/03/[address]: Dr. Luisa Birmingham MD : 1960 BED: DIS: 09/03/2023 SPEC #: [id number] RECD: 09/03/23 11:06 STATUS: YULIYA RETaya #: [id number] MIKE: 09/03/23 09:[address]: Luisa Birmingham DEPT: SURGICAL PATHOLOGY RECD BY: Liana Rojas ENTERED: 09/03/23 12:00 SP TYPE: COLON BX OTHR DR: Dr. Priti Mcmahan DO Tissues: A - Sigmoid colon biopsy B - Rectum, NOS Procedures: Surgery Specimen Level IV HEADER OPERATION: Colonoscopy with polypectomy and biopsy PRE-OP DIAGNOSIS: Positive Cologuard test TISSUE SUBMITTED: A - Sigmoid polyp, B - Rectum polyp biopsy MICROSCOPIC DIAGNOSIS A. Sigmoid polyp, polypectomy: Fragments of tubular adenoma. B. Rectum polyp, biopsy: Fragments of tubular adenoma. BREE:darinel 09/04/2023 MICROSCOPIC DESCRIPTION Slides are reviewed. GROSS DESCRIPTION A - Received in fixative is one container labeled with the patient's name and designated sigmoid polyp. The specimen consists of two irregular fragments of marques-pink soft tissue that in aggregate measure 0.7 x 0.5 x 0.3 cm. The specimen is totally submitted in one cassette. B - Received in fixative is one container labeled with the patient's name and designated rectum polyp biopsy. The specimen consists of two irregular fragments of light marques soft tissue that in aggregate measure 0.8 x 0.3 x 0.1 cm. The specimen is totally submitted in one cassette. / BREE:darinel 09/03/2023 TC: CPT: 12493 x2
--- NOTE | 2023-09-03 09:56 | OP.CCLET_ITS ---
09/03/2023 Priti Mcmahan [address] [place] [address] Re : Colonoscopy procedure for Venessa Bush Dear Dr. Mcmahan This procedure was performed on Sunday, September 03, 2023. My impressions and recommendations are as follows: Impressions : - One 5 mm polyp in the sigmoid colon, removed with a hot snare. Resected and retrieved. - One less than 5 mm polyp in the rectum, removed with a cold biopsy forceps. Resected and retrieved. - Diverticulosis in the sigmoid colon. - The examination was otherwise normal. Recommendations : - Discharge patient to home. - High fiber diet. - Continue present medications. - Await pathology results. - Repeat colonoscopy in 3 - 5 years for surveillance based on pathology results. My findings are described in the full procedure note, which is enclosed. If I can be of further assistance, please feel free to contact me at Doctor phone number(s): , Work: . Sincerely, MD Luisa Calix MD 09/03/2023 9:55:49 AM This report has been signed electronically.
--- NOTE | 2023-09-03 09:56 | OP.COLON_ITS ---
Patient Name: Venessa Bush Procedure Date: 09/03/2023 9:11 AM Date of : 1960 Age: 63 Procedure: Colonoscopy Indications: Positive Cologuard test Providers: Luisa Birmingham MD Medicines: Monitored Anesthesia Care Patient Profile: This is a 63 year old female. Last Colonoscopy: none. The patient's first colonoscopy is today. Complications: No immediate complications. Procedure: Pre-Anesthesia Assessment: - Prior to the procedure, a History and Physical was performed, and patient medications and allergies were reviewed. The patient's tolerance of previous anesthesia was also reviewed. The risks and benefits of the procedure and the sedation options and risks were discussed with the patient. All questions were answered, and informed consent was obtained. Prior Anticoagulants: The patient has taken no anticoagulant or antiplatelet agents. ASA Grade Assessment: Per anesthesia. After reviewing the risks and benefits, the patient was deemed in satisfactory condition to undergo the procedure. After I obtained informed consent, the scope was passed under direct vision. Throughout the procedure, the patient's blood pressure, pulse, and oxygen saturations were monitored continuously. The Colonoscope was introduced through the anus and advanced to the cecum, identified by appendiceal orifice and ileocecal valve. The colonoscopy was performed without difficulty. The patient tolerated the procedure well. The quality of the bowel preparation was good. Scope In: 9:29:26 AM Scope Out: 9:49:25 AM Total Procedure Duration Time 0 hours 19 minutes 59 seconds Findings: A 5 mm polyp was found in the sigmoid colon. The polyp was semi-pedunculated. The polyp was removed with a hot snare. Resection and retrieval were complete. A less than 5 mm polyp was found in the rectum. The polyp was sessile. The polyp was removed with a cold biopsy forceps. Resection and retrieval were complete. Multiple small-mouthed diverticula were found in the sigmoid colon. The exam was otherwise without abnormality. The perianal and digital rectal examinations were normal. Impression: - One 5 mm polyp in the sigmoid colon, removed with a hot snare. Resected and retrieved. - One less than 5 mm polyp in the rectum, removed with a cold biopsy forceps. Resected and retrieved. - Diverticulosis in the sigmoid colon. - The examination was otherwise normal. Recommendation: - Discharge patient to home. - High fiber diet. - Continue present medications. - Await pathology results. - Repeat colonoscopy in 3 - 5 years for surveillance based on pathology results. Procedure Code(s): --- Professional --- 49128, Colonoscopy, flexible; with removal of tumor(s), polyp(s), or other lesion(s) by snare technique 85495, 59, Colonoscopy, flexible; with biopsy, single or multiple Diagnosis Code(s): --- Professional --- D12.5, Benign neoplasm of sigmoid colon D12.8, Benign neoplasm of rectum R19.5, Other fecal abnormalities K57.30, Diverticulosis of large intestine without perforation or abscess without bleeding CPT copyright 2021 [employer]. All rights reserved. The codes documented in this report are preliminary and upon hand miter operator review may be revised to meet current compliance requirements. MD Luisa Calix MD 09/03/2023 9:55:49 AM This report has been signed electronically. Number of Addenda: 0 Note Initiated On: 09/03/2023 9:11 AM
== END 2023-09-03 10:44 | disposition home or self-care (01) ==
LOC: EN 08:46 → AC 08:48
PROVIDERS: PCP Family Medicine; Referring Provider Family Medicine; Visit Provider Surgery
PROC: 0DJD8ZZ Inspection of Lower Intestinal Tract, Via Natural or Artificial Opening Endoscopic (ICD-10-PCS; CPT 45378; principal; 2023-09-03 09:40)
DX: R19.5 Other fecal abnormalities (principal); K57.30 Diverticulosis of large intestine without perforation or abscess without bleeding; I10 Essential (primary) hypertension; Z90.49 Acquired absence of other specified parts of digestive tract; Q23.1 Congenital insufficiency of aortic valve; D12.5 Benign neoplasm of sigmoid colon; D12.8 Benign neoplasm of rectum
CPT/HCPCS: 45385; 45380; 88305; J7120; J2405

== ENCOUNTER → 2024-05-02 | Outpatient (CLI) | payer OTHER, SELFPAY ==
--- NOTE | 2024-05-02 13:55 | ECHOD_ITS ---
Reason For Study: STEFANIE BANERJEE, AV Procedure This was a 2D Doppler, Color Flow transthoracic echocardiogram. Exam performed in department. Left Ventricle Normal LV size. Left ventricular systolic function is normal. The left ventricular ejection fraction is 65 %. No regional wall motion abnormalities noted. Right Ventricle Normal RV size. Normal systolic function. Atria Normal left atrium. Normal right atrium. Mitral Valve Normal mitral valve. Tricuspid Valve Normal tricuspid valve. Aortic Valve Bicuspid aortic valve. Moderate focal aortic valve thickening. Peak aortic valve gradient 21 mmHg. Mean aortic valve gradient 12 mmHg. Pulmonic Valve Normal pulmonic valve. Great Vessels Normal aortic root. The pulmonary artery is normal size. Normal inferior vena cava. Pericardium/Pleural No pericardial effusion. MMode/2D Measurements & Calculations LVIDd: 4.9 cm IVSd: 1.1 cm LVOT diam: 2.1 cm LVIDs: 2.7 cm LVPWd: 1.1 cm LVOT area: 3.5 cm2 FS: 44.6 % Ao root diam: 3.8 cm LAV(MOD-bp): 52.0 ml LVAd ap4: 29.8 cm2 LAV(MOD-bp) Indexed: 26.3 ml/m2 LVLd ap4: 7.5 cm LAV(MOD-sp2): 64.9 ml EDV(MOD-sp4): 95.6 ml LAV(MOD-sp4): 38.5 ml EDV(sp4-el): 100.5 ml LVAs ap4: 16.5 cm2 LVLs ap4: 6.4 cm ESV(MOD-sp4): 36.0 ml ESV(sp4-el): 36.2 ml EF(MOD-sp4): 62.3 % EF(sp4-el): 64.0 % SV(MOD-sp4): 59.6 ml SV(sp4-el): 64.3 ml LA A4 area: 16.1 cm2 LA dimension(2D): 3.5 cm RA A4 area: 12.3 cm2 TAPSE: 1.9 cm Time Measurements MV dec time: 0.24 sec Doppler Measurements & Calculations MV E max akhil: 83.9 cm/sec Lat Peak E' Akhil: 11.9 cm/sec Med Peak E' Akhil: 9.2 cm/sec MV A max akhil: 78.7 cm/sec E/E' lat: 7.1 E/E' med: 9.1 MV E/A: 1.1 MV V2 max: 90.2 cm/sec Ao V2 max: 227.8 cm/sec MV max P.3 mmHg MV dec slope: 347.5 cm/sec2 Ao max P.8 mmHg MV V2 mean: 51.4 cm/sec Ao V2 mean: 160.7 cm/sec MV mean P.3 mmHg Ao mean P.9 mmHg MV V2 VTI: 37.4 cm Ao V2 VTI: 56.9 cm AV (velocity ratio): 0.52 MVA(VTI): 2.8 cm2 JOSEPH(I,D): 1.8 cm2 JOSEPH(V,D): 1.7 cm2 LV V1 max: 112.3 cm/sec SV(LVOT): 104.2 ml PA V2 max: 91.7 cm/sec LV V1 max P.1 mmHg PA V2 mean: 64.2 cm/sec LV V1 mean P.1 mmHg LV V1 mean: 83.5 cm/sec LV V1 VTI: 29.5 cm ECHO/Echo Complete Interpretation Summary Normal LV size. Left ventricular systolic function is normal. The left ventricular ejection fraction is 65 %. Bicuspid aortic valve. Moderate focal aortic valve thickening. Mean aortic valve gradient 12 mmHg. Ordering Physician: Mounika Pappas Referring Physician: Mounika Pappas Performed By: Jocelyn Kent and Student
== END | disposition home or self-care (01) ==
LOC: CVS 13:51
PROVIDERS: PCP Family Medicine; Referring Provider Physician Assistant Medical; Visit Provider Physician Assistant Medical
DX: Q23.1 Congenital insufficiency of aortic valve (principal)
CPT/HCPCS: 93306

== ENCOUNTER → 2025-03-09 | Outpatient (CLI) | payer OTHER, SELFPAY ==
[2025-03-09 16:07] LABS: Absolute Lymphocyte Count 1.45 X10^3/uL (0.83-4.51); Absolute Neutrophil Count 3.5 X10^3/uL (2.0-7.7); Basophil# 0.04 X10^3/uL; Basophil% 0.7 % (0-1); Eosinophil# 0.14 X10^3/uL; Eosinophils% 2.5 % (0-5); Hematocrit 43.5 % (37-47); Hemoglobin 13.9 g/dL (12.0-15.0); Lymphocyte # 1.45 X10^3/ul (0.83-4.51); Lymphocyte % 25.6 % (19-41); Mean Corpuscular Hgb 26.6 pg (27.0-32.0); Mean Corpuscular Volume 83.2 fL (81-99); Monocyte# 0.49 X10^3/uL; Monocyte% 8.6 % (0-10); NRBC Flagged by Analyzer 0 % (0-5); Neutrophil # 3.54 X10^3/uL (2.7-7.7); Neutrophil % 62.4 % (47-70); Platelet Count 292 K/mm3 (150-450); RBC Distribution Width CV 15.5 % (11.6-14.6); RBC Distribution Width SD 46.7 fl (35.1-43.9); Red Blood Count 5.23 M/mm3 (4.2-5.4); White Blood Count 5.7 K/mm3 (4.4-11.0)
[2025-03-09 16:50] LABS: Cholesterol 215 mg/dL (<=200); EST Glomerular Filtration Rate 86 (>60); High Density Lipoprotein 51 mg/dL; Low Density Lipoprotein Calc. 144 mg/dL; Triglycerides 104 mg/dL; Very Low Density Lipoprotein 21 mg/dL (5-40); cholesterol:hdl ratio screen 4.24
[2025-03-09 17:15] LABS: ALB/GLOB Ratio 1.2 RATIO (0.9-2.4); AST(SGOT) 41 U/L (<=31); Alanine Aminotransfer ALT/SGPT 54 U/L (<=34); Albumin, Serum 4.2 g/dL (3.4-4.8); Alkaline Phosphatase 58 U/L (35-104); Anion Gap 13 (5-15); BUN 12 mg/dL (4-19); BUN/Creat Ratio 15.1 RATIO (10-20); Carbon Dioxide 27.6 mmol/L (21.0-32.0); Chloride 101 mmol/L (98-108); Creatinine, Serum 0.79 mg/dL (0.70-1.20); Ferritin 84 ng/mL (22-378); Free T3 2.6 pg/mL (2.18-3.98); Globulin 3.5 g/dL (2.2-4.2); Glucose 85 mg/dL (70-99); Potassium 4.4 mmol/L (3.3-5.1); Protein, Total 7.8 g/dL (5.9-8.4); Sodium Level 141 mmol/L (133-145); Total Bilirubin 0.35 mg/dL (0.00-1.30); Vitamin B12 697 pg/mL (180-914); Vitamin D,25 Hydroxy 49.3 ng/mL (30-100)
[2025-03-09 17:16] LABS: Iron 70 ug/dL (50-170)
== END | disposition home or self-care (01) ==
LOC: MTLAB 12:41
PROVIDERS: PCP Family Medicine; Referring Provider Family Medicine; Visit Provider Family Medicine
DX: E55.9 Vitamin D deficiency, unspecified (principal); D64.9 Anemia, unspecified; R53.83 Other fatigue; E03.9 Hypothyroidism, unspecified; E78.5 Hyperlipidemia, unspecified; Z51.81 Encounter for therapeutic drug level monitoring
CPT/HCPCS: 36415; 80053; 80061; 82306; 82607; 82728; 83540; 84439; 84443; 84481; 85025

== ENCOUNTER → 2025-04-17 | Outpatient (CLI) | payer MEDICAID, SELFPAY ==
--- NOTE | 2025-04-17 13:02 | ECHOD_ITS ---
Reason For Study Reason For Study: BICUSPID AV Procedure This was a 2D Doppler, Color Flow transthoracic echocardiogram. Exam performed in department. Left Ventricle Normal LV size. The left ventricular ejection fraction is 55 %. No regional wall motion abnormalities noted. Right Ventricle Normal RV size. The right ventricle is normal in size, function, and thickness. Atria Normal left atrium. Normal right atrium. Mitral Valve Mild diffuse mitral valve thickening. Tricuspid Valve Normal tricuspid valve. Aortic Valve Bicuspid aortic valve. Moderate focal aortic valve thickening. Peak aortic valve gradient 19 mmHg. Mean aortic valve gradient 11 mmHg. Pulmonic Valve Normal pulmonic valve. Great Vessels Mildly dilated aortic root. The pulmonary artery is normal size. Inferior vena cava collapse with respiration. Pericardium/Pleural No pericardial effusion. MMode/2D Measurements & Calculations LVIDd: 4.7 cm IVSd: 1.1 cm LVOT diam: 1.9 cm LVIDs: 3.1 cm LVPWd: 1.2 cm LVOT area: 2.9 cm2 RVDd: 2.4 cm FS: 34.6 % Ao root diam: 3.9 cm LAV(MOD-bp): 26.2 ml LVAd ap4: 27.5 cm2 LAV(MOD-bp) Indexed: 13.2 ml/m2 LVLd ap4: 8.0 cm LAV(MOD-sp2): 14.5 ml EDV(MOD-sp4): 79.0 ml LAV(MOD-sp4): 30.7 ml EDV(sp4-el): 80.3 ml LVAs ap4: 16.0 cm2 LVLs ap4: 6.0 cm ESV(MOD-sp4): 37.3 ml ESV(sp4-el): 36.2 ml EF(MOD-sp4): 52.7 % EF(sp4-el): 55.0 % SV(MOD-sp4): 41.6 ml SV(sp4-el): 44.1 ml LA A4 area: 12.8 cm2 SI(MOD-sp4): 20.9 ml/m2 LA dimension(2D): 2.9 cm RA A4 area: 9.9 cm2 Time Measurements MV dec time: 0.23 sec Doppler Measurements & Calculations MV E max akhil: 58.3 cm/sec Lat Peak E' Akhil: 8.5 cm/sec Med Peak E' Akhil: 7.1 cm/sec MV A max akhil: 83.2 cm/sec E/E' lat: 6.9 E/E' med: 8.2 MV E/A: 0.70 MV V2 max: 99.8 cm/sec Ao V2 max: 222.7 cm/sec MV max P.0 mmHg MV dec slope: 275.1 cm/sec2 Ao max P.9 mmHg MV V2 mean: 44.8 cm/sec Ao V2 mean: 162.0 cm/sec MV mean P.99 mmHg Ao mean P.8 mmHg MV V2 VTI: 24.7 cm Ao V2 VTI: 51.1 cm AV (velocity ratio): 0.54 MVA(VTI): 3.3 cm2 JOSEPH(I,D): 1.6 cm2 JOSEPH(V,D): 1.4 cm2 LV V1 max: 106.1 cm/sec SV(LVOT): 81.1 ml PA V2 max: 74.8 cm/sec LV V1 max P.5 mmHg PA V2 mean: 53.7 cm/sec LV V1 mean P.8 mmHg LV V1 mean: 76.3 cm/sec LV V1 VTI: 27.7 cm ECHO/Echo Complete Interpretation Summary The left ventricular ejection fraction is 55 %. Normal LV size. No regional wall motion abnormalities noted. Bicuspid aortic valve. Moderate focal aortic valve thickening. Mean aortic valve gradient 11 mmHg. Ordering Physician: Mounika Pappas Referring Physician: Mounika Pappas Performed By: Jocelyn Dsouza RCS
== END | disposition home or self-care (01) ==
PROVIDERS: PCP Family Medicine; Referring Provider Physician Assistant Medical; Visit Provider Physician Assistant Medical
DX: Q23.1 Congenital insufficiency of aortic valve (principal)
CPT/HCPCS: 93306

== ENCOUNTER → 2025-07-02 | Outpatient (CLI) | payer MEDICAID, SELFPAY ==
[2025-07-02 12:49] LABS: Hematocrit 41.3 % (37-47); Hemoglobin 13.1 g/dL (12.0-15.0); Immature Granulocytes Count 0.010 X10^3/uL (0.0-0.0); Mean Corp Hgb Conc 31.7 g/dL (32-36); Mean Corpuscular Volume 84.1 fL (81-99); Mean Platelet Vol. 10.6 fl (6.2-12.0); NRBC Flagged by Analyzer 0 % (0-5); Platelet Count 268 K/mm3 (150-450); RBC Distribution Width CV 15.6 % (11.6-14.6); RBC Distribution Width SD 47.8 fl (35.1-43.9); Red Blood Count 4.91 M/mm3 (4.2-5.4); White Blood Count 5.2 K/mm3 (4.4-11.0)
[2025-07-02 17:06] LABS: AST(SGOT) 38 U/L (<=31); Alanine Aminotransfer ALT/SGPT 60 U/L (<=34); Albumin, Serum 4.0 g/dL (3.4-4.8); Alkaline Phosphatase 61 U/L (35-104); Anion Gap 11 (5-15); BUN 11 mg/dL (4-19); BUN/Creat Ratio 14.5 RATIO (10-20); Calcium,Total 9.3 mg/dL (7.6-11.0); Carbon Dioxide 29.0 mmol/L (21.0-32.0); Chloride 102 mmol/L (98-108); Free T3 2.8 pg/mL (2.18-3.98); Globulin 3.4 g/dL (2.2-4.2); Glucose 96 mg/dL (70-99); Potassium 3.9 mmol/L (3.3-5.1)
== END | disposition home or self-care (01) ==
LOC: LABSPEC 10:52 → BFHLAB 14:01
PROVIDERS: PCP Family Medicine; Visit Provider Family Medicine
DX: E03.9 Hypothyroidism, unspecified (principal); I10 Essential (primary) hypertension; R53.83 Other fatigue; Z51.81 Encounter for therapeutic drug level monitoring
CPT/HCPCS: 36415; 80053; 83036; 84439; 84443; 84481; 85025; 86376; 86800

== ENCOUNTER → 2025-07-08 | Outpatient (CLI) | payer MEDICAID, SELFPAY ==
--- NOTE | 2025-07-08 15:09 | BI_ITS ---
EXAM: SCRN MAMM (CAD)W/LUKE BILAT DATE: 07/08/2025 CLINICAL HISTORY: F, Age 65 y/o , SCREENING TECHNIQUE: Procedure Code: BISMWCADBTOM Modality: MG Procedure: SCRN MAMM (CAD)W/LUKE BILAT COMPARISON: Prior exam(s) were compared FINDINGS: TISSUE DENSITY: The breasts are heterogeneously dense, which may obscure small masses. Bilateral Breast Mammographic Findings: No suspicious masses, calcifications or other abnormalities are identified. BI/SCRN MAMM (CAD)W/LUEK BILAT IMPRESSION: No mammographic evidence of malignancy in either breast OVERALL FINAL ASSESSMENT BI-RADS 1: NEGATIVE. RECOMMENDATION: Routine annual follow-up in 1 Year A letter with findings and recommendations will be mailed to the patient. Reading Location: [place] [address]
== END | disposition home or self-care (01) ==
PROVIDERS: PCP Family Medicine; Referring Provider Family Medicine; Visit Provider Family Medicine
DX: Z12.31 Encounter for screening mammogram for malignant neoplasm of breast (principal)
CPT/HCPCS: 77063; 77067